=== PATIENT | male | born 2000 | race Caucasian/White ===

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

== ENCOUNTER 2018-03-17 09:20 | Day surgery (SDC) | payer OTHER ==
[~2018-03-17 09:20] MED LIST: Lactated Ringers 1,000 ML IV SCH; Midazolam 1 MG/ML 2 ML SDV ONE; Propofol 200 MG/20 ML SDV ONE; fentaNYL 100 MCG/2 ML SDV ONE
--- NOTE | 2018-03-17 10:20 | PCM.PREANE ---
Preanesthetic Assessment - Anesthesia/Transfusion/Family Hx Anesthesia History: Prior Anesthesia Without Reaction Family History of Anesthesia Reaction: No Transfusion History: No Prior Transfusion(s) Intubation History: Unknown - Review of Systems General: No Symptoms Pulmonary: No Symptoms Cardiovascular: No Symptoms Gastrointestinal: Abdominal Pain, Diarrhea Neurological: No Symptoms Other: Reports: None - Physical Assessment Height: 1.83 m Weight: 100.698 kg ASA Class: 2 Mental Status: Alert & Oriented x3 Airway Class: Mallampati = 2 Dentition: Reports: Normal Dentition Thyro-Mental Finger Breadths: 3 Mouth Opening Finger Breadths: 3 ROM/Head Extension: Full Lungs: Clear to Auscultation, Normal Respiratory Effort Cardiovascular: Regular Rate, Regular Rhythm - Allergies Allergies/Adverse Reactions: Allergies Allergy/AdvReac Type Severity Reaction Status Date / Time amoxicillin Allergy Hives Verified 03/12/18 13:14 Penicillins Allergy Hives Verified 03/12/18 13:14 - Blood Blood Available: No - Anesthesia Plan Pre-Op Medication Ordered: None - Acknowledgements Anesthesia Type Planned: MAC Pt an Appropriate Candidate for the Planned Anesthesia: Yes Alternatives and Risks of Anesthesia Discussed w Pt/Guardian: Yes Pt/Guardian Understands and Agrees with Anesthesia Plan: Yes PreAnesthesia Questionnaire - Past Health History Medical/Surgical History: Denies Medical/Surgical History Gastrointestinal History: Reports: Other (See Below) Other Gastrointestinal History: abd pain with certain foods Musculoskeletal History: Reports: Other (See Below) (mild back pain) Neurological History: Reports: Other (See Below) Other Neuro History: occasional headache Psychiatric History: Reports: Other (See Below) (h/o depression) Endocrine/Metabolic History: Reports: Obesity/BMI 30+ - Past Surgical History Head Surgeries/Procedures: Reports: None Musculoskeletal Surgical History: Reports: Arthroscopic Knee (left knee arthroscopy) - SUBSTANCE USE Tobacco Use Within Last Twelve Months: Other (See Below) Recreational Drug Use History: No - HOME MEDS Home Medications: Home Meds Amphetamine/Dextroamphetamine [Adderall XR] 30 mg PO BID 03/12/18 [History] - CURRENT (IN HOUSE) MEDS Current Meds: Current Medications Lactated Ringer's (Ringers, Lactated) 1,000 mls @ 125 mls/hr IV ASDIRECTED LAILA Discontinued Medications Fentanyl (Sublimaze) Confirm Administered Dose 100 mcg .ROUTE .STK-MED ONE Stop: 03/17/18 08:19 Midazolam HCl (Versed 1 Mg/Ml) Confirm Administered Dose 2 mg .ROUTE .STK-MED ONE Stop: 03/17/18 08:19 Propofol (Diprivan 20 Ml) Confirm Administered Dose 200 mg .ROUTE .STK-MED ONE Stop: 03/17/18 08:19
[2018-03-17] MEDS ORDERED: Propofol 200 MG/20 ML SDV ONE ×2 (11:09→11:21)
[2018-03-17] MEDS ORDERED: Sodium Chloride 0.9% 10 ML Syringe FLUSH PRN (11:55)
[2018-03-17] MEDS ORDERED: Sodium Chloride 0.9% 2.5 ML Syringe FLUSH PRN (11:55)
[2018-03-17] MEDS ORDERED: Ondansetron 4 MG/2 ML SDV IVPUSH PRN (11:55)
--- NOTE | 2018-03-17 12:00 | PCM.OPNOTE ---
- General Post-Op/Procedure Note Date of Surgery/Procedure: 03/17/18 Operative Procedure(s): Esophagogastroduodenoscopy with biopsies of the duodenum and stomach. Colonoscopy with cold rectal polypectomy Pre Op Diagnosis: Gluten and lactose intolerance. Postprandial abdominal pain and bloating. Strong family history of colon cancer. Post-Op Diagnosis: Mild to moderate gastritis. Hiatal hernia. Rectal polyp. Anesthesia Technique: MAC (ASA II) Primary Surgeon: Fritz Solano Breast Splitter: Agus Boyer Condition: Good Free Text/Narrative:: DICTATION [id number] CPT CODE 66706/[id number]
--- NOTE | 2018-03-17 12:42 | PCM.POSTAN ---
POST ANESTHESIA ASSESSMENT - MENTAL STATUS Mental Status: Alert, Oriented - RESPIRATORY Respiratory Status: Respiratory Rate WNL, Airway Patent, O2 Saturation Stable - CARDIOVASCULAR CV Status: Pulse Rate WNL, Blood Pressure Stable - GASTROINTESTINAL GI Status: No Symptoms - PAIN Pain Score: 0 - POST OP HYDRATION Hydration Status: Adequate & Stable
--- NOTE | 2018-03-17 12:43 | PCM48HPAN ---
Post Anesthesia Note - EVALUATION WITHIN 48HRS OF ANESTHETIC Vital Signs in Normal Range: Yes Patient Participated in Evaluation: Yes Respiratory Function Stable: Yes Airway Patent: Yes Cardiovascular Function Stable: Yes Hydration Status Stable: Yes Pain Control Satisfactory: Yes Nausea and Vomiting Control Satisfactory: Yes Mental Status Recovered: Yes Resp Rate: 11
[2018-03-17 13:49] VITALS: BP 107/69
--- NOTE | 2018-03-18 08:04 | OR ---
SURGEON: Fritz Solano M.D. DATE OF PROCEDURE: 03/17/2018 OPERATION PERFORMED: Colonoscopy with cold rectal polypectomy. CODING CLERKS SUPERVISOR: Dr. Heller. ANESTHESIA: MAC. ASA CLASSIFICATION: II. PREOPERATIVE DIAGNOSES: 1. Abdominal pain. 2. Multiple family members with colon cancer. POSTOPERATIVE DIAGNOSIS: Rectal polyp. DESCRIPTION OF PROCEDURE: With the patient having completed esophagogastroduodenoscopy, he was maintained in the left lateral decubitus position. The colonoscope was inserted into the rectum and advanced with minimal difficulty to the cecum where the ileocecal valve was cannulated to visualize the terminal ileum. The colonoscope was withdrawn into the cecum and retroflexed to visualize the ascending colon from below. The colonoscope was then straightened and slowly withdrawn. The cecum, ascending colon, hepatic flexure, transverse colon, splenic flexure, descending colon, and sigmoid colon showed no tumors, polyps, diverticula, or angiodysplastic changes. One small polyp was encountered in the rectum and removed with the cold biopsy forceps. The colonoscope was then retroflexed to visualize the anal orifice from above. Again, no tumors or polyps were seen and there were no acute hemorrhoidal changes. The colonoscope was then straightened, the rectum aspirated, and the colonoscope removed. The patient tolerated the procedure well and was taken to recovery room in stable condition. CRIS ROSALES /[id number] MUKESH
--- NOTE | 2018-03-18 08:04 | OR ---
SURGEON: Fritz Solano M.D. DATE OF PROCEDURE: 03/17/2018 OPERATION PERFORMED: Esophagogastroduodenoscopy with duodenal and gastric biopsies. GROUP UNDERWRITER: Dr. Heller. ANESTHESIA: MAC. ASA CLASSIFICATION: II. PREOPERATIVE DIAGNOSIS: Postprandial abdominal pain with gluten and lactose intolerance. POSTOPERATIVE DIAGNOSIS: [id number] gastritis. DESCRIPTION OF PROCEDURE: The patient was taken to the endoscopy room and positioned on the endoscopy table in the left lateral decubitus position. Time-out was called for appropriate identification of the patient and procedure. Monitored anesthesia care was provided. The bite block was placed between the patient's teeth. The gastroscope was inserted through the bite block and advanced without difficulty into the duodenum. Duodenal biopsies were obtained. No acute duodenal inflammatory changes were noted. The gastroscope was then withdrawn to the stomach which does show [id number] gastritis. No ulcerations were noted. Antral biopsies were obtained to look for the presence of Helicobacter pylori. The gastroscope was then straightened and slowly withdrawn. The GE junction was well defined and shows minimal inflammatory changes. The patient does have a small to moderate sized hiatal hernia. The esophagus itself demonstrates good contractility. No mid or proximal lesions were identified. The vocal cords were not visualized as the scope was withdrawn. The gastroscope was then removed with the patient having tolerated this portion of the procedure well. Following colonoscopy, he was taken to recovery room in stable condition. CRIS / CONNIE /[id number]
== END 2018-03-17 12:45 | disposition home or self-care (01) ==
LOC: MW.SDS 09:20
PROVIDERS: ATTEND Surgery
DX: K29.50 Unspecified chronic gastritis without bleeding (principal); K62.1 Rectal polyp; K90.41 Non-celiac gluten sensitivity; E73.9 Lactose intolerance, unspecified; K44.9 Diaphragmatic hernia without obstruction or gangrene; E66.9 Obesity, unspecified; Z88.0 Allergy status to penicillin; Z80.0 Family history of malignant neoplasm of digestive organs
CPT/HCPCS: 43239; 45380; J2250; J2704; J3010; J7120; 88305; 88312

== ENCOUNTER 2018-07-18 16:41 | Emergency (ER) | payer OTHER ==
--- NOTE | 2018-07-18 16:52 | EDM.PDOC ---
ED HPI GENERAL MEDICAL PROBLEM - General Chief Complaint: Lower Extremity Injury/Pain Stated Complaint: RIGHT FOOT POSSIBLY BROKEN Time Seen by Provider: 07/18/18 16:46 - History of Present Illness INITIAL COMMENTS - FREE TEXT/NARRATIVE: HISTORY AND PHYSICAL: History of present illness: Patient's a 18-year-old white male presents with concern of acute right foot and ankle injury that occurred yesterday. He denies other trauma or concern Review of systems: As per history of present illness and below otherwise all systems reviewed and negative. Past medical history: As per history of present illness and as reviewed below otherwise noncontributory. Surgical history: As per history of present illness and as reviewed below otherwise noncontributory. Social history: No reported history of drug or alcohol abuse. Family history: As per history of present illness and as reviewed below otherwise noncontributory. Physical exam: HEENT: Atraumatic, normocephalic, pupils reactive, negative for conjunctival pallor or scleral icterus, mucous membranes moist, throat clear, neck supple, nontender, trachea midline. Lungs: Clear to auscultation, breath sounds equal bilaterally, chest nontender. Heart: S1S2, regular, negative for clicks, rubs, or JVD. Abdomen: Soft, nondistended, nontender. Negative for masses or hepatosplenomegaly. Negative for costovertebral tenderness. Pelvis: Stable nontender. Genitourinary: Deferred. Rectal: Deferred. Extremities: Patient has tenderness swelling with small ecchymosis over the proximal dorsal lateral aspect of his forefoot on the right. Less significant tenderness in the region of the medial malleolus. There is no crepitation CMS neurovascular exam is unremarkable Neuro: Awake, alert, oriented. Cranial nerves II through XII unremarkable. Cerebellum unremarkable. Motor and sensory unremarkable throughout. Exam nonfocal. Diagnostics: X-ray right ankle/foot Therapeutics: To be determined Impression: #1 acute right ankle/foot injury Definitive disposition and diagnosis as appropriate pending reevaluation and review of above. - Related Data Allergies Allergy/AdvReac Type Severity Reaction Status Date / Time amoxicillin Allergy Hives Verified 07/18/18 16:47 Penicillins Allergy Hives Verified 07/18/18 16:47 Home Meds: Home Meds Amphetamine/Dextroamphetamine [Adderall XR] 30 mg PO BID 03/12/18 [History] Past Medical History - Past Health History Medical/Surgical History: Denies Medical/Surgical History Gastrointestinal History: Reports: Other (See Below) Other Gastrointestinal History: abd pain with certain foods Musculoskeletal History: Reports: Other (See Below) Neurological History: Reports: Other (See Below) Other Neuro History: occasional headache Psychiatric History: Reports: Other (See Below) Endocrine/Metabolic History: Reports: Obesity/BMI 30+ - Past Surgical History Head Surgeries/Procedures: Reports: None Musculoskeletal Surgical History: Reports: Arthroscopic Knee Social & Family History - Family History Family Medical History: Noncontributory - Caffeine Use Caffeine Use: Reports: None Review of Systems - Review of Systems Review Of Systems: ROS reveals no pertinent complaints other than HPI. ED EXAM, GENERAL - Physical Exam Exam: See Below (See dictation) Course - Vital Signs Last Recorded V/S: Last Vital Signs Temp 36.4 C 07/18/18 16:45 Pulse 94 07/18/18 16:45 Resp 18 07/18/18 16:45 BP 144/94 H 07/18/18 16:45 Pulse Ox 98 07/18/18 16:45 - Orders/Labs/Meds Orders: Active Orders 24 hr Category Date Time Status Ankle Min 3V Rt [CR] Stat Exams 07/18/18 16:48 Taken Foot 2V Rt [CR] Stat Exams 07/18/18 16:48 Taken Departure - Departure Time of Disposition: 18:08 Disposition: Home, Self-Care 01 Condition: Good Clinical Impression: Foot injury, Ankle injury - Discharge Information Referrals: PCP,None [Primary Care Provider] - Forms: ED Department Discharge Additional Instructions: The following information is given to patients seen in the emergency department who are being discharged to home. This information is to outline your options for follow-up care. We provide all patients seen in our emergency department with a follow-up referral. The need for follow-up, as well as the timing and circumstances, are variable depending upon the specifics of your emergency department visit. If you don't have a primary care physician on staff, we will provide you with a referral. We always advise you to contact your personal physician following an emergency department visit to inform them of the circumstance of the visit and for follow-up with them and/or the need for any referrals to a consulting specialist. The emergency department will also refer you to a specialist when appropriate. This referral assures that you have the opportunity for followup care with a specialist. All of these measure are taken in an effort to provide you with optimal care, which includes your followup. Under all circumstances we always encourage you to contact your private physician who remains a resource for coordinating your care. When calling for followup care, please make the office aware that this follow-up is from your recent emergency room visit. If for any reason you are refused follow-up, please contact the [facility] emergency department at and asked to speak to the emergency department charge nurse. Motrin/Tylenol as directed Anderson wrap/crutches as directed return as needed as discussed operative primary medical doctor as needed as discussed - My Orders Last 24 Hours: My Active Orders 07/18/18 16:48 Ankle Min 3V Rt [CR] Stat Foot 2V Rt [CR] Stat - Assessment/Plan Last 24 Hours: My Active Orders 07/18/18 16:48 Ankle Min 3V Rt [CR] Stat Foot 2V Rt [CR] Stat
--- NOTE | 2018-07-18 18:18 | CR ---
HISTORY: Pain and swelling since last night with no history of trauma. COMPARISON: None available. FINDINGS: AP, lateral and oblique views of the right ankle were obtained for a total of three views. There is no sign of fracture or dislocation. The ankle mortise is intact. The talar dome is intact. There is no sign of a joint effusion. The soft tissues are normal in appearance with no sign of foreign body. No degenerative changes are seen IMPRESSION: NORMAL RIGHT ANKLE. Dictated by Nishant Nuñez MD @ Jul 18 2018 6:15PM Signed by Dr. Nishant Nuñez @ Jul 18 2018 6:16PM
--- NOTE | 2018-07-18 18:21 | CR ---
INDICATION: Pain and swelling since last night. No injury. COMPARISON: None. FINDINGS/IMPRESSION: Right foot, 2 views. Nonspecific mild diffuse soft tissue swelling, greatest over the dorsum of the foot. No fracture, dislocation, bony erosion, or other osseous abnormality identified. Dictated by Chris Tovar MD @ 07/18/2018 6:19:04 PM Dictated by: Chris Tovar MD @ 07/18/2018 18:20:09 (Electronically Signed)
[2018-07-18 18:25] VITALS: BP 132/91
== END 2018-07-18 18:25 | disposition home or self-care (01) ==
LOC: MW.ED 16:41
DX: S90.31XA Contusion of right foot, initial encounter (principal); S90.01XA Contusion of right ankle, initial encounter; Z88.1 Allergy status to other antibiotic agents; Z88.0 Allergy status to penicillin; W18.2XXA Fall in (into) shower or empty bathtub, initial encounter
CPT/HCPCS: 73610-26-RT; 73610-RT; 73620-26-RT; 73620-RT; 99283

== ENCOUNTER 2020-08-11 08:01 | Emergency (ER) | payer OTHER ==
[2020-08-11] MEDS ORDERED: Lactated Ringers 1,000 ML IV ONE (08:20)
[2020-08-11] MEDS ORDERED: Morphine 4 MG/ML Syringe IVPUSH ONE (08:20)
[2020-08-11] MEDS ORDERED: Ondansetron 4 MG/2 ML SDV IVPUSH ONE (08:20)
--- NOTE | 2020-08-11 08:28 | EDM.PDOC ---
ED HPI GENERAL MEDICAL PROBLEM - General Chief Complaint: Abdominal Pain Stated Complaint: LEFT SIDE PAIN Time Seen by Provider: 08/11/20 08:15 - History of Present Illness INITIAL COMMENTS - FREE TEXT/NARRATIVE: CHIEF COMPLAINT(S): Abdominal pain HISTORY OF PRESENT ILLNESS: This is a 20-year-old man without any past medical history who comes to the emergency department with a chief complaint of abdominal pain. The patient states that starting approximately 2 hours ago while he was using the restroom he started to experience right-sided back pain and right lower quadrant abdominal pain. He states that it is constant and sharp rated 9 out of 10. States the pain starts in his back and radiates to his right lower quadrant. He denies any aggravating symptoms or relieving symptoms. He states that he does not have any diarrhea, melena, hematochezia, hematemesis or bilious emesis. He denies any dysuria or hematuria. He denies any penile discharge. He states that he does feel like he has an urge to use the restroom. He denies any numbness, tingling, weakness, urinary incontinence or bowel incontinence. He states that he is never had this before. He has not yet tried any pain medication. REVIEW OF SYSTEMS: Constitutional: Denies fever, chills. Eyes: Denies eye pain Ears, Nose, Mouth, & Throat: Denies earache Cardiovascular: Denies chest pain Respiratory: Denies shortness of breath Gastrointestinal: Positive for right lower quadrant abdominal pain, nausea, vomiting. Denies diarrhea, melena, hematochezia, hematemesis, bilious emesis Genitourinary: Denies hematuria, dysuria, penile discharge Skin:Denies a rash MSK: Denies joint pain Neurological: Denies blurred vision, numbness, tingling, weakness Psychiatric: Denies depression PAST MEDICAL HISTORY: As per history of present illness and as reviewed below otherwise noncontributory. SURGICAL HISTORY: As per history of present illness and as reviewed below otherwise noncontributory. SOCIAL HISTORY: As per history of present illness and as reviewed below otherwise noncontributory. FAMILY HISTORY: As per history of present illness and as reviewed below otherwise noncontributory. EXAMINATION OF ORGAN SYSTEMS/BODY AREAS: Constitutional: Blood pressure is 140/81, heart rate 82, respiratory rate 20 with an oxygen saturation 9 9% on room air. Temperature 36.1 General: Young man who does appear to be in a significant amount of pain. Psychiatric: Appropriate mood and affect. Eyes: No scleral icterus or conjunctival erythema ENMT: Moist mucous membranes. No pharyngeal erythema Cardiovascular: Regular, rate, and rhythm. No gallops, murmurs, or rubs. Bilateral upper extremity pulses symmetric and intact. No peripheral edema. No JVD. Respiratory: Lungs clear to auscultation bilaterally. No wheezes, rales, or rhonchi. Gastrointestinal: Soft, nondistended, tenderness to palpation in the periumbilical, right lower quadrant without any rebound or guarding. Decreased bowel sounds. Genitourinary: Mild suprapubic tenderness. Mild right CVA tenderness. Musculoskeletal: Normal range of motion. Skin: No lesions or abrasions. Neurological: Alert, GCS 15 MEDICAL DECISION MAKING AND COURSE IN THE ED WITH INTERPRETATION/REVIEW OF DIAGNOSTIC STUDIES: This is a 20-year-old man without any past medical history who comes to the emergency department with acute sudden onset sharp severe right flank pain that radiates to his right lower quadrant. At this time differential includes appendicitis, nephrolithiasis, musculoskeletal strain. We will provide the patient with 4 mg of IV morphine for pain relief, 4 mg of IV Zofran for nausea, and 1 L of lactated Ringer's bolus. Will obtain labs including CBC, CMP, and urinalysis. Will obtain a CT abdomen pelvis with and without contrast to evaluate. Laboratory: CBC is unremarkable. CMP is unremarkable. BUN and creatinine are normal. Urinalysis was a clean catch and was negative for leukocyte esterase, negative for nitrites, and moderate for blood. RBCs 1-3. No bacteria seen. No white blood cells. Interpretation: Microscopic hematuria Prior to CT the patient had continued pain and nausea therefore I provided the patient with 2.5 mg of IV Haldol and 25 mg of Benadryl. We will reevaluate his pain. The radiological images were viewed by myself along with reading the report from the radiologist. CT abdomen pelvis with and without contrast reveals a 2.3 mm stone located at the right UVJ with some hydronephrosis and hydroureter. Otherwise unremarkable. After imaging I did discuss the results with the patient. I discussed with him at this time that he would be stable for discharge. I did attempt to contact a urologist in [facility] in [place] however they were in surgery. I did obtain a contact information for a urological follow-up. This was done because we do not have a urologist currently in [facility] until August 29, 2020. Number was placed in patient's discharge paperwork. I discussed with the patient that he is to call and make an appointment for follow-up. I discussed that he should use ibuprofen 4 times a day and to use Center as needed for severe pain. In addition I did provide the patient with Flomax 0.4 mg daily until stone passage. He is to strain his urine every time he urinates. He is to return for any new or worsening symptoms. He was amenable to discharge at this time and had no further questions DISPOSITION: The patient was discharged home in stable condition. The patient will follow up with primary care physician and urology in [facility] in [place] CONDITION: Fair PROCEDURES: None FINAL IMPRESSION(S)/DIAGNOSES: 1. Acute right nephrolithiasis located at the UVJ with mild hydronephrosis Suman Mckeon M.D. Right Lower Abdomen Pain Score (Numeric/FACES): 9 - Related Data Allergies Allergy/AdvReac Type Severity Reaction Status Date / Time amoxicillin Allergy Hives Verified 08/11/20 08:06 Penicillins Allergy Hives Verified 08/11/20 08:06 Home Meds: Home Meds Acetaminophen/HYDROcodone [[place] 325-5 MG] 1 tab PO Q6H PRN #6 tablet 08/11/20 [Rx] Ibuprofen 400 mg PO Q6HR #28 tablet 08/11/20 [Rx] Tamsulosin [Tamsulosin 24 Hr] 0.4 mg PO DAILY #7 cap.er 08/11/20 [Rx] Past Medical History - Past Health History Medical/Surgical History: Denies Medical/Surgical History Gastrointestinal History: Reports: Other (See Below) Other Gastrointestinal History: abd pain with certain foods Musculoskeletal History: Reports: Other (See Below) Neurological History: Reports: Other (See Below) Other Neuro History: occasional headache Psychiatric History: Reports: Other (See Below) Endocrine/Metabolic History: Reports: Obesity/BMI 30+ - Infectious Disease History Infectious Disease History: Reports: None - Past Surgical History Head Surgeries/Procedures: Reports: None Musculoskeletal Surgical History: Reports: Arthroscopic Knee Social & Family History - Family History Family Medical History: No Pertinent Family History - Caffeine Use Caffeine Use: Reports: Coffee - Recreational Drug Use Recreational Drug Use: Yes Recreational Drug Type: Reports: Marijuana/Hashish Recreational Drug Use Frequency: Rarely ED ROS GENERAL - Review of Systems Review Of Systems: See Below ED EXAM, GI/ABD - Physical Exam Exam: See Below Course - Vital Signs Last Recorded V/S: Last Vital Signs Temp 36.1 C 08/11/20 08:06 Pulse 77 08/11/20 10:43 Resp 18 08/11/20 10:43 BP 138/75 08/11/20 10:43 Pulse Ox 97 08/11/20 10:43 - Orders/Labs/Meds Labs: Laboratory Tests 08/11/20 08/11/20 08/11/20 Range/Units 08:13 08:13 10:25 WBC 8.06 (4.0-11.0) K/uL RBC 5.53 (4.50-5.90) M/uL Hgb 16.8 (13.0-17.0) g/dL Hct 48.3 (38.0-50.0) % MCV 87.3 (80.0-98.0) fL MCH 30.4 (27.0-32.0) pg MCHC 34.8 (31.0-37.0) g/dL RDW Std Deviation 42.7 (28.0-62.0) fl RDW Coeff of Carly 13 (11.0-15.0) % Plt Count 186 (150-400) K/uL MPV 12.10 H (7.40-12.00) fL Neut % (Auto) 66.2 (48.0-80.0) % Lymph % (Auto) 23.0 (16.0-40.0) % [place] % (Auto) 8.7 (0.0-15.0) % Eos % (Auto) 1.9 (0.0-7.0) % Baso % (Auto) 0.2 (0.0-1.5) % Neut # (Auto) 5.3 (1.4-5.7) K/uL Lymph # (Auto) 1.9 (0.6-2.4) K/uL [place] # (Auto) 0.7 (0.0-0.8) K/uL Eos # (Auto) 0.2 (0.0-0.7) K/uL Baso # (Auto) 0.0 (0.0-0.1) K/uL Nucleated RBC % 0.0 /100WBC Nucleated RBCs # 0 K/uL Sodium 140 (136-148) mmol/L Potassium 3.7 (3.5-5.1) mmol/L Chloride 104 (98-107) mmol/L Carbon Dioxide 24.7 (21.0-32.0) mmol/L BUN 14 (7.0-18.0) mg/dL Creatinine 1.3 (0.8-1.3) mg/dL Est Cr Clr Drug Dosing 100.73 mL/min Estimated GFR (MDRD) > 60.0 ml/min Glucose 133 H (74-106) mg/dL Calcium 8.9 (8.5-10.1) mg/dL Total Bilirubin 0.4 (0.2-1.0) mg/dL AST 15 (15-37) IU/L ALT 25 (14-63) IU/L Alkaline Phosphatase 66 (46-116) U/L Total Protein 7.5 (6.4-8.2) g/dL Albumin 4.2 (3.4-5.0) g/dL Globulin 3.3 (2.6-4.0) g/dL Albumin/Globulin Ratio 1.3 (0.9-1.6) Urine Color YELLOW Urine Appearance CLEAR Urine pH 7.0 (5.0-8.0) Ur Specific [place] 1.015 (1.001-1.035) Urine Protein NEGATIVE (NEGATIVE) mg/dL Urine Glucose (UA) NEGATIVE (NEGATIVE) mg/dL Urine Ketones NEGATIVE (NEGATIVE) mg/dL Urine Occult Blood MODERATE H (NEGATIVE) Urine Nitrite NEGATIVE (NEGATIVE) Urine Bilirubin NEGATIVE (NEGATIVE) Urine Urobilinogen 0.2 (<2.0) EU/dL Ur Leukocyte Esterase NEGATIVE (NEGATIVE) Urine RBC 1-3 (0-2/HPF) Urine WBC NONE SEEN (0-5/HPF) Ur Epithelial Cells RARE (NONE-FEW) Urine Bacteria NOT SEEN (NEGATIVE) Meds: Medications Discontinued Medications Generic Name Dose Route Start Last Admin Trade Name Freq PRN Reason Stop Dose Admin Diphenhydramine HCl 25 mg 08/11/20 09:02 08/11/20 09:14 Benadryl IVPUSH 08/11/20 09:03 25 mg ONETIME ONE Administration Haloperidol Lactate 2.5 mg 08/11/20 09:01 08/11/20 09:15 Haldol IM 08/11/20 09:02 2.5 mg ONETIME ONE Administration Lactated Ringer's 1,000 mls @ 999 mls/hr 08/11/20 08:20 08/11/20 08:26 Ringers, Lactated IV 08/11/20 09:20 999 mls/hr .BOLUS ONE Administration Iopamidol 100 ml 08/11/20 09:49 08/11/20 09:55 Isovue Multipack-370 (76%) IVPUSH 08/11/20 09:50 100 ml ONETIME STA Administration Morphine Sulfate 4 mg 08/11/20 08:20 08/11/20 08:27 Morphine IVPUSH 08/11/20 08:21 4 mg ONETIME ONE Administration Ondansetron HCl 4 mg 08/11/20 08:20 08/11/20 08:26 Zofran IVPUSH 08/11/20 08:21 4 mg ONETIME ONE Administration Tamsulosin HCl 0.4 mg 08/11/20 10:22 08/11/20 10:32 Flomax PO 08/11/20 10:23 0.4 mg ONETIME ONE Administration Departure - Departure Time of Disposition: 10:48 Disposition: Home, Self-Care 01 Condition: Fair Clinical Impression: Nephrolithiasis - Discharge Information *PRESCRIPTION DRUG MONITORING PROGRAM REVIEWED*: No *COPY OF PRESCRIPTION DRUG MONITORING REPORT IN PATIENT CLAUDIA: No Prescriptions: Tamsulosin [Tamsulosin 24 Hr] 0.4 mg PO DAILY #7 cap.er Ibuprofen 400 mg PO Q6HR #28 tablet Acetaminophen/HYDROcodone [Center 325-5 MG] 1 tab PO Q6H PRN #6 tablet PRN Reason: Pain (Severe 7-10) Instructions: Kidney Stones, [id number], Dietary Guidelines to Help Prevent Kidney Stones Referrals: PCP,None [Primary Care Provider] - Forms: ED Department Discharge Additional Instructions: Your evaluated today on an emergent basis. At this time we did diagnose you with a kidney stone. This is located near your bladder. It is a small stone measuring 2.3 mm. Usually stones less than 5 mm passed on their own. You do not have any evidence of infection or kidney dysfunction. Therefore at this time we recommend straining your urine every time you pee to evaluate for any stone passage. We also recommend that she use ibuprofen 400 to 600 mg every 6 hours for pain relief. In addition I did prescribe you with Center 5 mg which can be used every 6 hours as needed if ibuprofen is not controlling your pain. You will likely not achieve 0 out of 10 pain therefore if you are able to manage the pain that I would recommend not taking Center unless it is severe. It is important that you maintain adequate hydration. Please return to the emergency department if you have worsening pain, pain with urination, fever. It is important that you follow-up with your primary care physician and urology. Currently we do not have a urologist in [facility] therefore a number for a urologist in [facility] is provided below. Please call and make an appointment with them. If you do not have a primary care physician numbers are also provided below. Urology ([facility]) -> Please call to make a follow up appointment. Dr. Childress [phone] [facility] - [facility] [address] [place] [address] [place] [address] The patient is informed of any results of their evaluation and diagnostic workup and all questions are answered. They are given discharge instructions and return precautions. The patient is stable for discharge. The patient states they understand and agree with the plan and that they will return if their symptoms get worse or if they have any new concerns. The following information is given to patients seen in the emergency department who are being discharged to home. This information is to outline your options for follow-up care. We provide all patients seen in our emergency department with a follow-up referral. The need for follow-up, as well as the timing and circumstances, are variable depending upon the specifics of your emergency department visit. If you don't have a primary care physician on staff, we will provide you with a referral. We always advise you to contact your personal physician following an emergency department visit to inform them of the circumstance of the visit and for follow-up with them and/or the need for any referrals to a consulting specialist. The emergency department will also refer you to a specialist when appropriate. This referral assures that you have the opportunity for follow-up care with a specialist. All of these measure are taken in an effort to provide you with optimal care, which includes your follow-up. Under all circumstances we always encourage you to contact your private physician who remains a resource for coordinating your care. When calling for follow-up care, please make the office aware that this follow-up is from your recent emergency room visit. If for any reason you are refused follow-up, please contact the [facility] Emergency Department at and asked to speak to the emergency department charge nurse. Sepsis Event Note (ED) - Evaluation Sepsis Screening Result: No Definite Risk - Focused Exam Vital Signs: Vital Signs Temp Pulse Resp BP Pulse Ox 08/11/20 10:43 77 18 138/75 97 08/11/20 10:10 84 18 134/79 98 08/11/20 08:37 81 20 138/84 100 08/11/20 08:06 36.1 C 82 20 140/81 99
[2020-08-11 08:41] LABS: BLOOD UREA NITROGEN,BUN 14 mg/dL (7.0-18.0); CARBON DIOXIDE,CO2 24.7 mmol/L (21.0-32.0); CHLORIDE,CL 104 mmol/L (98-107); GLUCOSE RANDOM 133 mg/dL (74-106); POTASSIUM,K 3.7 mmol/L (3.5-5.1); SODIUM,NA 140 mmol/L (136-148)
[2020-08-11] MEDS ORDERED: Haloperidol Lactate 5 MG/ML SDV IM ONE (09:01)
[2020-08-11] MEDS ORDERED: diphenhydrAMINE 50 MG/ML SDV IVPUSH ONE (09:02)
[2020-08-11] MEDS ORDERED: Iopamidol 755 MG/ML 500 ML Multipack Bottle IVPUSH STA (09:49)
--- NOTE | 2020-08-11 10:15 | CT ---
Indication: Right lower quadrant pain right flank pain Technique: Volumetric multidetector CT images of the abdomen and pelvis were obtained before and after the administration of intravenous contrast using a urographic protocol. 100 cc Isovue 370 low osmolar intravenous contrast Comparison: None available. Findings: The lung bases are clear. The liver is normal in attenuation without intrahepatic biliary ductal dilatation. The portal vein is patent. The gallbladder is unremarkable without evidence of radiopaque calculus. There is no significant common biliary ductal dilatation or abrupt cut off. The spleen is normal in enhancement and size. The stomach and duodenum are grossly unremarkable. The pancreas is normal in enhancement without significant atrophy. The adrenal glands are unremarkable. There is right-sided hydronephrosis and hydroureter with demonstration of a 2.3 millimeter calculus at the ureterovesicular junction. There is somewhat diminutive size of the left kidney and small renal parenchymal defects consistent with likely sequela of prior renal parenchymal injury. Additional nonobstructing calculi within the right collecting system are appreciated the largest measuring 2.4 millimeters. There is moderate stool seen throughout the colon with minimal distal colonic diverticulosis without evidence of diverticulitis. The appendix is unremarkable. There is no significant mesenteric, retroperitoneal, or pelvic sidewall lymph nodes. The aorta is nonaneurysmal. There is no significant atherosclerotic disease appreciated. The solid pelvic viscera are grossly unremarkable. There is no free fluid or free air. The anterior abdominal wall is intact without significant hernias. The lumbar vertebral body heights are grossly maintained without evidence of spondylolisthesis. There is mild straightening of the normal lumbar lordosis. Impression: Right-sided hydronephrosis and hydroureter with a 2.3 millimeter calculus at the right ureterovesicular junction. Normal appendix. Please note that all CT scans at this facility use dose modulation, iterative reconstruction, and/or weight-based dosing when appropriate to reduce radiation dose to as low as reasonably achievable. Dictated by Jw Cronin MD @ Aug 11 2020 9:59AM Signed by Dr. Jw Cronin @ Aug 11 2020 10:13AM
[2020-08-11] MEDS ORDERED: Tamsulosin 0.4 MG Cap.ER PO ONE (10:22)
[2020-08-11 11:05] VITALS: BP 144/66; PULSE 75
== END 2020-08-11 11:02 | disposition home or self-care (01) ==
LOC: MW.ED 08:01
DX: N13.2 Hydronephrosis with renal and ureteral calculous obstruction (principal); E66.9 Obesity, unspecified; Z68.31 Body mass index [BMI] 31.0-31.9, adult; Z88.0 Allergy status to penicillin
CPT/HCPCS: 36415; 74178; 80053; 81001; 85025; 96374; 96375; 99284; A9270; J1200; J1630; J2270; J2405; J7120; Q9967; 99283

== ENCOUNTER 2021-03-06 15:30 | Emergency (ER) | payer OTHER ==
[2021-03-06 16:48] VITALS: BP 128/86; PULSE 84
--- NOTE | 2021-03-06 18:22 | EDM.PDOC ---
ED HPI GENERAL MEDICAL PROBLEM - General Chief Complaint: Laceration Stated Complaint: LACERATION ON RT FINGER Time Seen by Provider: 03/06/21 18:21 Source of Information: Reports: Patient History Limitations: Reports: No Limitations - History of Present Illness INITIAL COMMENTS - FREE TEXT/NARRATIVE: 21-year-old male no relevant past medical history presents for laceration to right third digit. Patient cut himself while cutting potatoes at home. His tetanus is up-to-date within the last 5 years. No other injuries. Bleeding well controlled prior to arrival. - Related Data Allergies Allergy/AdvReac Type Severity Reaction Status Date / Time amoxicillin Allergy Hives Verified 08/11/20 08:06 Penicillins Allergy Hives Verified 08/11/20 08:06 Home Meds: Home Meds Acetaminophen/HYDROcodone [[place] 325-5 MG] 1 tab PO Q6H PRN #6 tablet 08/11/20 [Rx] Ibuprofen 400 mg PO Q6HR #28 tablet 08/11/20 [Rx] Tamsulosin [Tamsulosin 24 Hr] 0.4 mg PO DAILY #7 cap.er 08/11/20 [Rx] Past Medical History - Past Health History Medical/Surgical History: Denies Medical/Surgical History Gastrointestinal History: Reports: Other (See Below) Other Gastrointestinal History: abd pain with certain foods Musculoskeletal History: Reports: Other (See Below) Neurological History: Reports: Other (See Below) Other Neuro History: occasional headache Psychiatric History: Reports: Other (See Below) Endocrine/Metabolic History: Reports: Obesity/BMI 30+ - Infectious Disease History Infectious Disease History: Reports: None - Past Surgical History Head Surgeries/Procedures: Reports: None Musculoskeletal Surgical History: Reports: Arthroscopic Knee Social & Family History - Family History Family Medical History: No Pertinent Family History - Tobacco Use Tobacco Use Status *Q: Current Every Day Tobacco User Years of Tobacco use: 10 Packs/Tins Daily: 0.5 - Caffeine Use Caffeine Use: Reports: Coffee - Recreational Drug Use Recreational Drug Use: No ED ROS GENERAL - Review of Systems Review Of Systems: Comprehensive ROS is negative, except as noted in HPI. ED EXAM, SKIN/RASH Exam: See Below Exam Limited By: No Limitations General Appearance: Alert, WD/WN, No Apparent Distress Throat/Mouth: Normal Voice, No Airway Compromise Head: Atraumatic, Normocephalic Neck: Normal Inspection Respiratory/Chest: No Respiratory Distress, Lungs Clear, Normal Breath Sounds, No Accessory Muscle Use Cardiovascular: Normal Peripheral Pulses, Regular Rate, Rhythm Extremities: Normal Inspection Neurological: Alert, Normal Cognition, Normal Gait Psychiatric: Normal Affect, Normal Mood Skin: Warm, Dry, Intact, Normal Color, Other (2-cm linear laceration to R 3rd digit ) ED SKIN PROCEDURES - Laceration/Wound Repair Right Digit - 3rd (Middle) Appearance: Superficial Distal NVT: Neuro & Vascular Intact Anesthetic Type: Digital Local Anesthesia - Lidocaine (Xylocaine): 1% Plain Local Anesthetic Volume: 5cc Skin Prep: Chlorhexidine (Hibiciens) Saline Irrigation (cc's): 50 Closed with: Sutures Lac/Wound length In cm: 2 Suture Size: 5-0 # of Sutures: 4 Suture Type: Silk Sterile Dressing Applied: Nurse Tetanus Status Addressed: Yes Complications: No Course - Vital Signs Last Recorded V/S: Last Vital Signs Temp 97.5 F 03/06/21 16:42 Pulse 84 03/06/21 16:42 Resp 18 03/06/21 16:42 BP 128/86 03/06/21 16:42 Pulse Ox 98 03/06/21 16:42 - Orders/Labs/Meds Meds: Medications Discontinued Medications Generic Name Dose Route Start Last Admin Trade Name Dinah PRN Reason Stop Dose Admin Lidocaine HCl 10 ml 03/06/21 18:21 03/06/21 18:27 Lidocaine 1% 5 Ml Sdv INJECT 03/06/21 18:22 10 ml ONETIME ONE Administration Departure - Departure Time of Disposition: 18:39 Disposition: Home, Self-Care 01 Condition: Good Clinical Impression: Laceration - Discharge Information Instructions: Laceration Care, Adult Referrals: PCP,None [Primary Care Provider] - Forms: ED Department Discharge Additional Instructions: Please come back in 7 to 10 days for suture removal The following information is given to patients seen in the emergency department who are being discharged to home. This information is to outline your options for follow-up care. We provide all patients seen in our emergency department with a follow-up referral. The need for follow-up, as well as the timing and circumstances, are variable depending upon the specifics of your emergency department visit. If you don't have a primary care physician on staff, we will provide you with a referral. We always advise you to contact your personal physician following an emergency department visit to inform them of the circumstance of the visit and for follow-up with them and/or the need for any referrals to a consulting specialist. The emergency department will also refer you to a specialist when appropriate. This referral assures that you have the opportunity for follow-up care with a specialist. All of these measure are taken in an effort to provide you with optimal care, which includes your follow-up. Under all circumstances we always encourage you to contact your private physician who remains a resource for coordinating your care. When calling for follow-up care, please make the office aware that this follow-up is from your recent emergency room visit. If for any reason you are refused follow-up, please contact the Emergency Department at and asked to speak to the emergency department charge nurse. Please follow up with your primary care physician. If you do not have a primary care physician, see below: [facility] [address] [place] [id number] [facility] [address] [place] [id number] [facility] [address] [place] [id number] Sepsis Event Note (ED) - Focused Exam Vital Signs: Vital Signs Temp Pulse Resp BP Pulse Ox 03/06/21 16:42 97.5 F 84 18 128/86 98
== END 2021-03-06 18:55 | disposition home or self-care (01) ==
LOC: MW.ED 15:30
DX: S61.212A Laceration without foreign body of right middle finger without damage to nail, initial encounter (principal); E66.9 Obesity, unspecified; Z68.36 Body mass index [BMI] 36.0-36.9, adult; Z88.0 Allergy status to penicillin; Z72.0 Tobacco use; W26.8XXA Contact with other sharp object(s), not elsewhere classified, initial encounter; Y92.009 Unspecified place in unspecified non-institutional (private) residence as the place of occurrence of the external cause
CPT/HCPCS: 12001; 99282-25

== ENCOUNTER 2022-05-07 17:13 | Emergency (ER) | payer BC, OTHER ==
[2022-05-07] MEDS ORDERED: Bacitracin Oint 1 GM U/D Packet TOP ONE (17:40)
[2022-05-07 19:05] VITALS: BP 132/81; PULSE 85
== END 2022-05-07 19:02 | disposition home or self-care (01) ==
LOC: MW.ED 17:13
DX: S61.452A Open bite of left hand, initial encounter (principal); E66.9 Obesity, unspecified; Z68.45 Body mass index [BMI] 70 or greater, adult; Z88.0 Allergy status to penicillin; Z79.899 Other long term (current) drug therapy; W54.0XXA Bitten by dog, initial encounter
CPT/HCPCS: 73130-26-LT; 73130-LT; 99283

== ENCOUNTER 2022-06-04 18:13 | Emergency (ER) | payer BC ==
[2022-06-04 20:26] VITALS: PULSE 78
[2022-06-04] MEDS ORDERED: Lidocaine 1% 5 ML VIAL INJECT ONE (20:30)
[2022-06-04] MEDS ORDERED: Bupivacaine 0.25% 10 ML SDV INJECT ONE (20:30)
[2022-06-04] MEDS ORDERED: Bacitracin Oint 1 GM U/D Packet TOP ONE (21:06)
[2022-06-04 21:17] VITALS: BP 127/76
== END 2022-06-04 21:16 | disposition home or self-care (01) ==
LOC: MW.ED 18:13
DX: S61.412A Laceration without foreign body of left hand, initial encounter (principal); E66.9 Obesity, unspecified; Z68.38 Body mass index [BMI] 38.0-38.9, adult; Z88.0 Allergy status to penicillin; W25.XXXA Contact with sharp glass, initial encounter
CPT/HCPCS: 12002; 99282; J3490

== ENCOUNTER 2025-05-24 07:04 | Emergency (ER) | payer OTHER ==
[2025-05-24] MEDS: methylPREDNISolone Sodium Succinate 40 MG/1 ML SDV IM ONE (07:26)
[2025-05-24 07:33] VITALS: BP 138/78; PULSE 88
== END 2025-05-24 07:43 | disposition home or self-care (01) ==
LOC: MW.ED 07:04
DX: L50.0 Allergic urticaria (principal); R03.0 Elevated blood-pressure reading, without diagnosis of hypertension; E66.9 Obesity, unspecified; Z79.899 Other long term (current) drug therapy; Z88.0 Allergy status to penicillin; Z91.09 Other allergy status, other than to drugs and biological substances; Z68.39 Body mass index [BMI] 39.0-39.9, adult
CPT/HCPCS: 96372; 99283; A9270; J2919